=== PATIENT | female | born 1990 | race Caucasian/White ===

== ENCOUNTER 2023-12-14 06:41 | Emergency (ER) | payer BC, OTHER ==
[2023-12-14 07:10] VITALS: TEMP 97.8
--- NOTE | 2023-12-14 07:33 | ERPHSYRPT ---
- History of Present Illness Time Seen by Provider: 12/14/23 07:30 Source: patient Exam Limitations: no limitations Patient Subjective Stated Complaint: Pt states "about two weeks ago I started to have pain in my left jaw and it radiates into my left ear and head. I have bad teeth and I went to the dentist and he said there is no infection but the pain is just getting really bad." Triage Nursing Assessment: PT presented alert and oriented X 3, skin pwd. Pt ambulates with an upright steady gait, able to speak in clear full sentensces. PT grunting and moaning. Physician History: 33 years old female with history of multiple dental caries with broken teeth presented in the ER with 5-day history of left jaw pain with progressive worsening. She been taking antibiotics for the last few days and saw dentist yesterday who does not think patient has any infection. He is planning on multiple teeth extraction early next week. Patient reported pain is getting worse with no swelling. It radiates to the left lutheran area. Sharp shooting moderate to severe. She has taken [id number] medication with no significant relief. Allergies/Adverse Reactions: morphine Allergy (Severe, Verified 12/14/23 07:11) Swelling patient also had hallucinations hydromorphone [From Dilaudid] Allergy (Intermediate, Verified 12/14/23 07:15) Blisters ketorolac [From Toradol] Allergy (Intermediate, Verified 12/14/23 07:15) Blisters Home Medications: ALPRAZolam 1 MG [Xanax 1 mg] 1 mg PO DAILY 12/14/23 [History] Bupropion HCl Xl 150 mg [Wellbutrin XL 150 MG] 150 mg PO DAILY 12/14/23 [History] Clonidine HCl 0.1 mg [Clonidine 0.1 mg Tablet] 0.1 mg PO DAILY 12/14/23 [History] Desvenlafaxine Succinate [Pristiq ER] 100 mg PO DAILY 12/14/23 [History] Dextroamphetamine/Amphetamine [Adderall 10 mg Tablet] 10 mg PO DAILY 12/14/23 [History] Dextroamphetamine/Amphetamine [Adderall Xr 30 mg Capsule] 30 mg PO DAILY 12/14/23 [History] Hx Tetanus, Diphtheria Vaccination/Date Given: No Hx Influenza Vaccination/Date Given: No Hx Pneumococcal Vaccination/Date Given: No Immunizations Up to Date: No Travel Risk - International Travel Have you traveled outside of the country in past 3 weeks: No - Emerging Infectious Disease Are you exhibiting symptoms associated with any current EIDs: No - Review of Systems Constitutional: No Symptoms Eyes: No Symptoms Ears, Nose, & Throat: Mouth Pain Respiratory: No Symptoms Cardiac: No Symptoms Abdominal/Gastrointestinal: No Symptoms Genitourinary Symptoms: No Symptoms Skin: No Symptoms Neurological: No Symptoms - Past Medical History Pertinent Past Medical History: Yes Psycho-Social History: Anxiety, Attention Deficit Disorder, Depression - Past Surgical History Past Surgical History: Yes Other Surgical History: dental. c section. tubes removed - Female History Hx Last Menstrual Period: 11/27/2023 Hx Now: No - Social History Smoking Status: Current every day smoker How long have you smoked: 6 Exposure to second hand smoke: Yes Drug Use: marijuana - Nursing Vital Signs Nursing Vital Signs: Initial Vital Signs Temperature 97.8 F 12/14/23 07:04 Pulse Rate 88 12/14/23 07:04 Respiratory Rate 20 12/14/23 07:04 Blood Pressure 124/79 12/14/23 07:04 O2 Sat by Pulse Oximetry 94 L 12/14/23 07:04 Pain Scale Pain Intensity 6 - Physical Exam General Appearance: no apparent distress, alert Eye Exam: bilateral eye: normal inspection, PERRL, EOMI Ear Exam: bilateral ear: auricle normal, canal normal, TM normal Nasal Exam: normal inspection Throat Exam: normal, pharynx normal, dental tenderness (Multiple lower premolar and molar area tenderness. No gingival swelling. 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 II-XII nml as tested Skin Exam: normal color SpO2 Interpretation: normal SpO2: 94 O2 Delivery: Room Air Ordered Tests: Medication Summary Discontinued Medications Generic Name Dose Route Start Last Admin Trade Name Freq PRN Reason Stop Dose Admin Al Hydrox/Mg Hydrox/Simethicone 30 ml 12/14/23 07:46 12/14/23 07:57 Mag Hydrox/Al Hydrox/Simeth 30 Ml Udcup PO 12/14/23 07:47 30 ml STAT ONE Administration Al Hydrox/Mg Hydrox/Simethicone Confirm 12/14/23 07:56 Mag Hydrox/Al Hydrox/Simeth 30 Ml Udcup Administered 12/14/23 07:57 Dose 30 ml .ROUTE .STK-MED ONE Benzocaine/Butamben/Tetracaine HCl 5 spray 12/14/23 07:46 12/14/23 07:50 Tetracaine/Benzocaine/Butamben 1 [place] TP 12/14/23 07:47 5 spray ONCE ONE Administration Diphenhydramine HCl 50 mg 12/14/23 07:30 12/14/23 08:06 Diphenhydramine Hcl 50 Mg/Ml Vial IM 12/14/23 07:31 50 mg STAT ONE Administration Diphenhydramine HCl Confirm 12/14/23 07:55 Diphenhydramine Hcl 50 Mg/Ml Vial Administered 12/14/23 07:56 Dose 50 mg .ROUTE .STK-MED ONE Fentanyl Citrate 50 mcg 12/14/23 07:30 12/14/23 08:06 Fentanyl Citrate 100 Mcg/2 Ml* Vial IM 12/14/23 07:31 50 mcg STAT ONE Administration Fentanyl Citrate Confirm 12/14/23 07:55 Fentanyl Citrate 100 Mcg/2 Ml* Vial Administered 12/14/23 07:56 Dose 100 mcg .ROUTE .STK-MED ONE Lidocaine HCl 30 ml 12/14/23 07:46 12/14/23 07:57 Lidocaine Hcl 2% Viscous 15 Ml Udcup PO 12/14/23 07:47 30 ml STAT ONE Administration Lidocaine HCl Confirm 12/14/23 07:55 Lidocaine Hcl 2% Viscous 15 Ml Udcup Administered 12/14/23 07:56 Dose 30 ml .ROUTE .STK-MED ONE Metoclopramide HCl 10 mg 12/14/23 07:30 12/14/23 08:07 Metoclopramide Hcl 10 Mg/2 Ml Vial IM 12/14/23 07:31 10 mg STAT ONE Administration Metoclopramide HCl Confirm 12/14/23 07:55 Metoclopramide Hcl 10 Mg/2 Ml Vial Administered 12/14/23 07:56 Dose 10 mg .ROUTE .STK-MED ONE - Progress Progress: improved Progress Note: 12/14/23 33-year-old is evaluated for left jaw pain with dental caries and has been taking antibiotics with recent dentist visit who does not think patient has any dental infection. She is given symptomatic treatment as I believe patient has exposed nerve causing pain. On reevaluation pain is improved. Recommended continue with antibiotics. She is given dental balls to go home and recommended outpatient dental follow-up as scheduled. Counseled pt/family regarding: diagnosis, need for follow-up Medical Desision Making - Risk of complications The pt has a mod risk of morbidity or mortality based on: Need for prescription drug management - Departure Departure Disposition: Home Clinical Impression: Pain due to dental caries Condition: Stable Critical Care Time: No Referrals: [facility] [NON-STAFF PHY W/O PRIVILEGES] - Follow up with PCP 1 day Instructions: Dental Pain (DC) Additional Instructions: Follow-up with your primary care and dentist for reevaluation as scheduled. Tylenol/ibuprofen as needed for pain. Return to ER for any worsening.
[2023-12-14] MEDS: CETACAINE SPRAY TP ONE (07:50)
[2023-12-14] MEDS ORDERED: SUBLIMAZE 100 MCG/2 ML ONE (07:55)
[2023-12-14] MEDS ORDERED: Reglan 10 MG/2 ML ONE (07:55)
[2023-12-14] MEDS ORDERED: BENADRYL 50 MG/ML ONE (07:55)
[2023-12-14] MEDS ORDERED: XYLOCAINE VISCOUS 2% 15 ML CUP ONE (07:55)
[2023-12-14] MEDS ORDERED: MAALOX ES 30 ML UNIT DOSE ONE (07:56)
[2023-12-14] MEDS: MAALOX ES 30 ML UNIT DOSE PO ONE (07:57)
[2023-12-14] MEDS: XYLOCAINE VISCOUS 2% 15 ML CUP PO ONE (07:57)
[2023-12-14] MEDS: BENADRYL 50 MG/ML IM ONE (08:06)
[2023-12-14] MEDS: SUBLIMAZE 100 MCG/2 ML IM ONE (08:06)
[2023-12-14] MEDS: Reglan 10 MG/2 ML IM ONE (08:07)
[2023-12-14 09:03] VITALS: BP 120/71; PULSE 88; RESP 20
[2023-12-14 22:36] VITALS: O2SAT 94
== END 2023-12-14 09:03 | disposition home or self-care (01) ==
LOC: ED 06:41
DX: K02.9 Dental caries, unspecified (principal)
CPT/HCPCS: 96372; 99283; J1200; J3010; A9270-GY